=== PATIENT | male | born 1940 ===

== ENCOUNTER → 2022-01-28 | Day surgery (SDC) | payer OTHER | END | disposition home or self-care (01) | LOC: ADM 01-25 14:00 → AMB-ENDOS 06:00 | PROVIDERS: ATTEND Surgery | DX: K62.1 Rectal polyp (principal); K57.30 Diverticulosis of large intestine without perforation or abscess without bleeding; Z20.822 Contact with and (suspected) exposure to COVID-19; K64.4 Residual hemorrhoidal skin tags; Z85.46 Personal history of malignant neoplasm of prostate; E78.5 Hyperlipidemia, unspecified; K62.7 Radiation proctitis; I10 Essential (primary) hypertension ==